=== PATIENT | male | born 1970 | race Two or more races ===

== ENCOUNTER 2020-03-18 03:40 | Observation (INO) | payer BC, OTHER ==
[2020-03-18] MEDS ORDERED: NITROGLYCERIN SL TABS 0.4 MG TAB SUBLINGUAL PRN (04:28)
--- NOTE | 2020-03-18 04:45 | ED ---
Syncope HPI - General Chief Complaint: Syncope Stated Complaint: Syncope Time Seen by Provider: 03/18/20 03:42 Source: patient, EMS, RN notes reviewed Mode of arrival: EMS Limitations: no limitations - History of Present Illness Initial Comments: This patient is a 49-year-old man who was transferred here from [facility] where he had gone to be evaluated after syncopal episode. The patient states that sometime between 12 and 1 this morning, he had gotten out of bed to use the bathroom. The patient states that he had not yet urinated MD Complaint: loss of consciousness Onset/Timin -: hour(s) Prodromal Symptoms: lightheaded -: second(s) Witnessed: no Injuries Sustained Associated with Event: None Current Symptoms: back to baseline History: previous syncopal episode Context: getting out of bed Treatments Prior to Arrival: IV fluids - Related Data Allergies Allergy/AdvReac Type Severity Reaction Status Date / Time No Known Allergies Allergy Verified 03/18/20 03:52 Review of Systems ROS Statement: Those systems with pertinent positive or pertinent negative responses have been documented in the HPI. ROS Other: All systems not noted in ROS Statement are negative. Constitutional: Denies: fever, chills Respiratory: Denies: cough, dyspnea Cardiovascular: Reports: syncope. Denies: chest pain, palpitations, edema Gastrointestinal: Denies: abdominal pain, nausea, vomiting, melena, hematochezia Musculoskeletal: Denies: back pain Skin: Denies: rash Neurological: Denies: headache, weakness, numbness Past Medical History History of Any Multi-Drug Resistant Organisms: None Reported Past Surgical History: No Surgical Hx Reported Past Psychological History: No Psychological Hx Reported Smoking Status: Current every day smoker Past Alcohol Use History: Occasional Past Drug Use History: None Reported General Exam Limitations: no limitations General appearance: alert, in no apparent distress Head exam: Present: atraumatic, normocephalic Eye exam: Present: normal appearance. Absent: scleral icterus, conjunctival injection ENT exam: Present: normal oropharynx Neck exam: Present: normal inspection, full ROM Respiratory exam: Present: normal lung sounds bilaterally. Absent: respiratory distress, wheezes, rales, rhonchi, stridor Cardiovascular Exam: Present: regular rate, normal rhythm, normal heart sounds. Absent: systolic murmur, diastolic murmur, rubs, gallop GI/Abdominal exam: Present: soft. Absent: distended, tenderness, guarding, rebound, rigid, mass Extremities exam: Present: normal inspection, normal capillary refill. Absent: pedal edema, calf tenderness Back exam: Present: normal inspection. Absent: CVA tenderness (R), CVA tenderness (L) Neurological exam: Present: alert, oriented X3 Skin exam: Present: warm, dry, intact, normal color Course Vital Signs 03/18/20 03:41 Temperature 98.3 F Pulse Rate 76 Respiratory 18 Rate Blood Pressure 150/98 O2 Sat by Pulse 97 Oximetry EKG Findings - EKG Results: EKG: interpreted by ERMTari, sinus rhythm (Rate 71 bpm), normal axis, normal QRS, normal ST/T, no acute changes - ID, Pacemaker, Normal: Normal tracing: normal tracing Disposition Clinical Impression: Syncope Disposition: ADMITTED IP TO THIS HOSP Condition: Good Is patient prescribed a controlled substance at d/c from ED?: No Referrals: None,Stated [Primary Care Provider] - 1-2 days
--- NOTE | 2020-03-18 09:44 | P.HPIM ---
History of Present Illness H&P Date: 03/18/20 Chief Complaint: syncope Patient is a 49 yo CM with who initially presented to [facility] after a syncopal event. There he underwent an extensive evaluation. Initial lab analysis consistened of a CBC and was unremarkable. On arrival here his vitals signs were within normal limits. Troponin was negative. EKG shows normal sinus rhythm at rate of 71, normal axis, normal intervals, no significant ST-T segment changes. Per patient he had 2 additional pre-syncopal episodes at [facility] where he states his heart rate dropped below 40. Patient seen and examined at bedside. He awoke from sleep went to the bathroom, urinated and went to wash hands and fainted, feels like it only lasted a few seconds. No loss of bowel or bladder control. No tongue bitting. [place] slightly off after urinating but was not having any room spinning or chest discomfort. Upon waking he did feel slightly woozy. He denied any chest pain, palpitations, blurry vision, or double vision. Yesterday afternoon he got light headed when outside this resolved when he sat down and rested. He reports that he has been eating and drinking well. No recent illness, no chest pain, shortness breath, nausea, vomiting, or diarrhea. Hx of syncope 8 years ago states that he was hospitalized for 3 days but no results were had. Review of Systems Pertinent positives and negatives as discussed in HPI, a complete review of systems was performed and all other systems are negative. Past Medical History Additional Past Medical History / Comment(s): syncope History of Any Multi-Drug Resistant Organisms: None Reported Additional Past Surgical History / Comment(s): Ankle fracture repair on right Past Psychological History: No Psychological Hx Reported Smoking Status: Current every day smoker Past Alcohol Use History: Occasional Past Drug Use History: None Reported Additional History: E cigs, works in a shop - Past Family History Mother Family Medical History: No Reported History Additional Family Medical History / Comment(s): hx of stroke or heart attack patient unsure which Medications and Allergies Home Medications Medication Instructions Recorded Confirmed Type No Known Home Medications 03/18/20 03/18/20 History Allergies Allergy/AdvReac Type Severity Reaction Status Date / Time No Known Allergies Allergy Verified 03/18/20 12:30 Physical Exam Osteopathic Statement: *. No significant issues noted on an osteopathic structural exam other than those noted in the History and Physical/Consult. Vitals: Vital Signs Temp Pulse Resp BP Pulse Ox 03/18/20 06:52 64 19 110/80 95 03/18/20 05:00 62 18 139/49 96 03/18/20 04:00 64 18 131/83 96 03/18/20 03:41 98.3 F 76 18 150/98 97 Intake and Output 03/17/20 03/18/20 03/18/20 22:59 06:59 14:59 Other: Weight 86.183 kg General: non toxic, no distress, appears at stated age, normal weight Derm: no unusual rashes/lesions no unusual ecchymoses, warm, dry Head: atraumatic, normocephalic, symmetric Eyes: EOMI, no lid lag, anicteric sclera, pupils equal round reactive to light ENT: Nose and ears atraumatic, no thrush, no pharyngeal erythema Neck: No thyromegaly, no cervical lymphadenopathy, trachea midline, supple Mouth: no lip lesion, mucus membranes moist Cardiovascular: S1S2 reg, no murmur, positive posterior tibial pulse bilateral, no edema, capillary refill less than 2 seconds Lungs: CTA bilateral, no rhonchi, no rales , no accessory muscle use Abdominal: soft, nontender to palpation, no guarding, no appreciable organomegaly, normal bowel sounds Ext: no gross muscle atrophy, muscle strength 5 out of 5 in all 4 extremities grossly, no contractures, Neuro: CN II-XI grossly intact, light touch intact all 4 extremities, finger to nose within normal limits, Psych: Alert, oriented, appropriate affect Results CBC & Chem 7: 03/18/20 10:17 Thrombosis Risk Factor Assmnt - DVT/VTE Prophylaxis DVT/VTE Prophylaxis: Low risk, early ambulation encouraged Assessment and Plan Assessment: Syncopal Event - Orthostatic ordered and reviewed and were negative - Tele - echo - Cardio recs appreciated d/w Dr. Esposito if work-up here unremarkable then outpatient event monitor - stat BMP, mg, and TSH reviewed and negative nicotine abuse - cessation recommended The patient is placed in observation with an anticipated less than 2 midnight stay for evaluation of syncope. Surrogate decision-maker: CODE STATUS:full DVT prophylaxis: early ambulation Discussed with: patient, Nursing, Dr. Esposito Anticipated discharge date: in AM Anticipated discharge place: Home A total of 65 minutes was spent on the care of this complex patient more than 50% of the time was spent in counseling and care coordination.
[2020-03-18 10:54] LABS: African American GFR (CKD) >90 (>60 ml/min/1.73 sqM); Anion Gap 6 mmol/L; Blood Urea Nitrogen 6 mg/dL (9-20); Calcium 9.2 mg/dL (8.4-10.2); Carbon Dioxide 26 mmol/L (22-30); Chloride 106 mmol/L (98-107); Glucose 113 mg/dL (74-99); Magnesium 1.9 mg/dL (1.6-2.3); Non-African American GFR(CKD) >90 (>60 ml/min/1.73 sqM); Potassium 4.1 mmol/L (3.5-5.1); Sodium 138 mmol/L (137-145)
--- NOTE | 2020-03-18 13:20 | P.CRDCN ---
History of Present Illness Consult date: 03/18/20 Chief complaint: Loss of consciousness History of present illness: This is a very pleasant 49-year-old gentleman was no significant past medical history as noted initially to [facility] with loss of consciousness and subsequently was transferred to [facility]. The patient was in his usual state of health until yesterday when he was going to the bathroom and suddenly he lost his consciousness. He woke up to find himself on the floor. The episode was not witnessed by anybody. The patient denies any symptoms of chest pain or chest discomfort, dizziness, heart racing or fluttering around the episode. He was told that his heart rate dropped to about 40 at [facility] with reviewing the [facility] did not indicate and I did not see any evidence of heart rate in the 40s. The EKG showed sinus rhythm. No evidence of any sinus bradycardia noted. The TSH was checked and came in to be unremarkable. His blood work came in to be unremarkable overall. The patient doesn't have any history of coronary artery disease or congestive heart failure or any cardiac arrhythmia and no family history of coronary artery disease but he is a smoker. An echocardiogram was ordered and will follow-up with that. The patient stated that his son had a pacemaker at age of 24. At this point I recommended monitor the patient for additional 24 hours and rule out any cardiac arrhythmia. If no cardiac arrhythmia noted he would benefit from an event monitor. Beside that we'll fo llow-up on the echocardiogram. Beside that I will check his serial cardiac enzymes to rule out any acute coronary event. We'll continue following up with the patient Past Medical History Additional Past Medical History / Comment(s): syncope History of Any Multi-Drug Resistant Organisms: None Reported Past Surgical History: No Surgical Hx Reported Additional Past Surgical History / Comment(s): Ankle fracture repair on right Past Psychological History: No Psychological Hx Reported Smoking Status: Current every day smoker Past Alcohol Use History: Occasional Past Drug Use History: None Reported - Past Family History Mother Family Medical History: No Reported History Additional Family Medical History / Comment(s): hx of stroke or heart attack Medications and Allergies Home Medications Medication Instructions Recorded Confirmed Type No Known Home Medications 03/18/20 03/18/20 History Allergies Allergy/AdvReac Type Severity Reaction Status Date / Time No Known Allergies Allergy Verified 03/18/20 12:30 Physical Exam Vitals: Vital Signs Temp Pulse Pulse Pulse Pulse Resp BP 03/18/20 09:58 75 82 67 03/18/20 06:52 64 19 110/80 03/18/20 05:00 62 18 139/49 03/18/20 04:00 64 18 131/83 03/18/20 03:41 98.3 F 76 18 150/98 BP BP BP Pulse Ox 03/18/20 09:58 124/83 140/90 118/70 03/18/20 06:52 95 03/18/20 05:00 96 03/18/20 04:00 96 03/18/20 03:41 97 Intake and Output 03/17/20 03/18/20 03/18/20 22:59 06:59 14:59 Other: Weight 86.183 kg - Constitutional General appearance: no acute distress - Respiratory Respiratory: bilateral: CTA - Cardiovascular Rhythm: regular Heart sounds: normal: S1, S2 Results 03/18/20 10:17 Cardiac Enzymes 03/18/20 03/18/20 Range/Units 03:47 10:17 Troponin I <0.012 <0.012 (0.000-0.034) ng/mL Comprehensive Metabolic Panel 03/18/20 Range/Units 10:17 Sodium 138 (137-145) mmol/L Potassium 4.1 (3.5-5.1) mmol/L Chloride 106 (98-107) mmol/L Carbon Dioxide 26 (22-30) mmol/L BUN 6 L (9-20) mg/dL Creatinine 0.63 L (0.66-1.25) mg/dL Glucose 113 H (74-99) mg/dL Calcium 9.2 (8.4-10.2) mg/dL Current Medications Generic Name Dose Route Start Last Admin Trade Name Freq PRN Reason Stop Dose Admin Aspirin 325 mg 03/19/20 09:00 Aspirin PO DAILY DARREN Nitroglycerin 0.4 mg 03/18/20 04:28 Nitrostat SUBLINGUAL Q5M PRN Chest Pain Intake and Output 03/17/20 03/18/20 03/18/20 22:59 06:59 14:59 Other: Weight 86.183 kg 03/18/20 10:17 Assessment and Plan Assessment: Assessment Syncopal episode Significant history of smoking Plan Rule out cardiac arrhythmia mainly bradycardia Rule out acute coronary event Follow up on the echocardiogram Follow-up with the patient
--- NOTE | 2020-03-18 21:04 | ECHOF ---
Referral Reason:syncope MEASUREMENTS -------- HEIGHT: 188.0 cm WEIGHT: 86.2 kg BP: 118/70 IVSd: 1.3 cm (0.6 - 1.1) LVIDd: 4.0 cm (3.9 - 5.3) LVPWd: 1.1 cm (0.6 - 1.1) IVSs: 1.6 cm LVIDs: 2.7 cm LVPWs: 1.5 cm RVIDd: 3.1 cm (< 3.3) LAESV Index (A-L): 22.02 ml/m Ao Diam: 2.9 cm (2.0 - 3.7) AV Cusp: 1.9 cm (1.5 - 2.6) EPSS: 0.6 cm MV E Arnoldo: 0.61 m/s MV DecT: 280 ms MV A Arnoldo: 0.71 m/s MV E/A Ratio: 0.86 RAP: 5.00 mmHg RVSP: 19.79 mmHg MV EF SLOPE: 72.00 mm/s (70 - 150) MV EXCURSION: 18.52 mm (> 18.000) FINDINGS -------- Sinus rhythm. This was a technically good study. The left ventricular size is normal. There is mild concentric left ventricular hypertrophy. Overa ll left ventricular systolic function is normal with, an EF between 60 - 65 %. The diastolic fillin g pattern is normal for the age of the patient 6.61. The right ventricle is normal in size. Normal LA size by volume 22+/-6 ml/m2. The right atrial size is normal. Interatrial and interventricular septum intact. The aortic valve is trileaflet and appears structurally normal. There is no evidence of aortic regu rgitation. There is no evidence of aortic stenosis. There is trace mitral regurgitation. Mild tricuspid regurgitation present. There is no evidence of pulmonary hypertension. The right v entricular systolic pressure, as measured by Doppler, is 19.79mmHg. There is no pulmonic regurgitation present. The aortic root size is normal. IVC Not well visulized. There is no pericardial effusion. CONCLUSIONS -------- 1. Sinus rhythm. 2. This was a technically good study. 3. The left ventricular size is normal. 4. There is mild concentric left ventricular hypertrophy. 5. Overall left ventricular systolic function is normal with, an EF between 60 - 65 %. 6. The diastolic filling pattern is normal for the age of the patient 6.61 7. The right ventricle is normal in size. 8. Normal LA size by volume 22+/-6 ml/m2. 9. The right atrial size is normal. 10. Interatrial and interventricular septum intact. 11. The aortic valve is trileaflet and appears structurally normal. 12. There is no evidence of aortic regurgitation. 13. There is no evidence of aortic stenosis. 14. There is trace mitral regurgitation. 15. Mild tricuspid regurgitation present. 16. There is no evidence of pulmonary hypertension. 17. The right ventricular systolic pressure, as measured by Doppler, is 19.79mmHg. 18. There is no pulmonic regurgitation present. 19. The aortic root size is normal. 20. IVC Not well visulized. 21. There is no pericardial effusion. GRIT BLASTER: Angeline Santoyo RDCS
[2020-03-19 05:46] LABS: Cholesterol 158 mg/dL (<200); HDL Cholesterol 42 mg/dL (40-60); LDL Cholesterol,Calculated 101 mg/dL (0-99); Triglycerides 75 mg/dL (<150)
[2020-03-19 08:28] VITALS: BP 100/62; PULSE 66; RESP 16; TEMP 98
[2020-03-19] MEDS ORDERED: ASPIRIN 325 MG TAB PO SCH (09:00)
--- NOTE | 2020-03-19 10:50 | P.PN ---
Subjective Progress Note Date: 03/19/20 This is a very pleasant 49-year-old gentleman was no significant past medical history as noted initially to [facility] with loss of consciousness and subsequently was transferred to [facility]. He was seen in consultation yesterday by Dr. Galo. He has had no tachycardia or bradycardia arrhythmias noted on the monitor. Troponins were negative. Echocardiogram with Doppler study revealed a normal left ventricular systolic function. Patient was seen and examined this morning, he denied any dizziness or lightheadedness. Blood pressure this morning 100/60 with a heart rate in the 60s, 98% on room air. Objective - Vital Signs Vital signs: Vital Signs Temp 98 F 03/19/20 08:00 Pulse 66 03/19/20 08:00 Resp 16 03/19/20 08:00 BP 100/62 03/19/20 08:00 Pulse Ox 98 03/19/20 08:00 Intake & Output 03/18/20 03/19/20 03/19/20 18:59 06:59 18:59 Intake Total 240 Balance 240 Weight 83 kg Intake: Oral 240 Other: # Voids 2 - Exam PHYSICAL EXAMINATION: GENERAL: 49-year-old gentleman in no acute distress at the time of my examination HEENT: Head is atraumatic, normocephalic. Pupils equal, round. Sclera a nicteric. Conjunctiva are clear. Mucous membranes of the mouth are moist. Neck is supple. There is no elevated jugular venous pressure. No carotid bruit is heard. HEART EXAMINATION: Heart S1, S2 normal. No murmur or gallop heard. CHEST EXAMINATION: Lungs are clear to auscultation and precussion. No chest wall tenderness is noted on palpation or with deep breathing. ABDOMEN: Soft, nontender. Bowel sounds are heard. No organomegaly noted. EXTREMITIES: 2+ peripheral pulses with no evidence of peripheral edema and no calf tenderness noted. NEUROLOGIC patient is awake, alert and oriented 3 . . - Labs CBC & Chem 7: 03/18/20 10:17 Labs: Abnormal Lab Results - Last 24 Hours (Table) 03/18/20 03/18/20 Range/Units 10:17 10:17 BUN 6 L (9-20) mg/dL Creatinine 0.63 L (0.66-1.25) mg/dL Glucose 113 H (74-99) mg/dL LDL Cholesterol, Calc 101 H (0-99) mg/dL Assessment and Plan Plan: Assessment and plan #1 syncope, no evidence of any tachycardia or bradycardia arrhythmias on the monitor. Echo revealed normal left ventricular systolic function. Troponins were negative 3. #2 nicotine dependence Plan We will obtain a stat d-dimer just to rule out the possibility of pulmonary embolism. Patient may be able to be discharged home if that is normal, follow- up appointment with Dr. Galo in the office post discharge. We also recommend a 30 day event monitor on discharge. DNP note has been reviewed, I agree with a documented findings and plan of care. Patient was seen and examined.
--- NOTE | 2020-03-19 15:51 | P.DS ---
Providers Date of admission: 03/18/20 04:46 Expected date of discharge: 03/19/20 Attending physician: Sheri Marquez MD Consults: 03/18/20 04:29 Consult Physician Routine Consulting Provider: Alonzo Esposito Consult Reason/Comments: syncope Do you want consulting provider notified?: Yes Primary care physician: Stated None Hospital Course: Discharge Diagnosis: Syncope Nicotine Abuse Hospital Course: Patient is a 49 yo CM with who initially presented to [facility] after a syncopal event. There he underwent an extensive evaluation. Initial lab analysis consistened of a CBC and was unremarkable. On arrival here his vitals signs were within normal limits. Troponin was negative. EKG shows normal sinus rhythm at rate of 71, normal axis, normal intervals, no significant ST-T segment changes. Per patient he had 2 additional pre-syncopal episodes at [facility] where he states his heart rate dropped below 40 ( we were not able to appreciate this on rhythm strip from [facility]). He was admitted for observation. Orthostatic vitals were obtained which were within normal limits. Telemetry showed no significant events for 24 hours. Echocardiogram was obtained which showed a preserved ejection fraction lung with no signs of valvular dysfunction. He was determined stable for discharge. Arrangements were made for follow up with Dr. Esposito in the office for event monitor. Patient seen and examined at bedside. No additional episodes of presyncope or syncope. Vital signs reviewed and stable. General: non toxic, no distress, appears at stated age Derm: warm, dry Head: atraumatic, normocephalic, symmetric Eyes: EOMI, no lid lag, anicteric sclera Mouth: no lip lesion, mucus membranes moist Cardiovascular: S1S2 reg, no murmur, positive posterior tibial pulse bilateral, Lungs: CTA bilateral, no rhonchi, no rales , no accessory muscle use Abdominal: soft, nontender to palpation, no guarding, no appreciable organomegaly Ext: no gross muscle atrophy, no edema, no contractures Neuro: CN II-XI grossly intact, no focal neuro deficits Psych: Alert, oriented, appropriate affect A total of 25 minutes of time were spent preparing this complex discharge summary . Patient Condition at Discharge: Good Plan - Discharge Summary Discharge Rx Participant: Yes New Discharge Prescriptions: No Action No Known Home Medications Discharge Medication List No Known Home Medications 03/18/20 [History] Follow up Appointment(s)/Referral(s): Alonzo Esposito MD [STAFF PHYSICIAN] - 03/23/20 3:30 pm Robbin Plummer MD [REFERRING] - 1 Week Activity/Diet/Wound Care/Special Instructions: Activity: as tolerated Diet: regular Special Instructions: Follow-up with Dr. Esposito for event monitor Discharge Disposition: HOME SELF-CARE
== END 2020-03-19 12:46 | disposition home or self-care (01) ==
LOC: EC 03:40 → 2SICU 04:46 → 3SCARD 13:37
PROVIDERS: ADMIT Internal Medicine; ATTEND Internal Medicine
DX: R55 Syncope and collapse (principal); F17.200 Nicotine dependence, unspecified, uncomplicated; Z03.818 Encounter for observation for suspected exposure to other biological agents ruled out; Z87.81 Personal history of (healed) traumatic fracture
CPT/HCPCS: 99285; 93005; 93306; 85379; 80061; 80048; 84443; 83735; 84484; G0378 ×2; U0003